=== PATIENT | female | born 1985 | race Caucasian/White ===

== ENCOUNTER → 2017-06-14 | Outpatient (CLI) | payer BC ==
--- NOTE | 2017-06-14 21:20 | US ---
EXAMINATION TYPE: US kidneys/renal and bladder DATE OF EXAM: 06/14/2017 COMPARISON: NONE CLINICAL HISTORY: R80.9 PROTEINURIA. Proteinuria, patient is 19 weeks EXAM MEASUREMENTS: Right Kidney: 12.6 x 5.2 x 4.8 cm Left Kidney: 13.6 x 4.5 x 4.7 cm Right Kidney: No hydronephrosis or nephrolithiasis. Left Kidney: No hydronephrosis or nephrolithiasis. Bladder: appears wnl Bilateral Jets seen: yes Splenomegaly: spleen measuring 14.0cm IMPRESSION: Thickening at the upper limits of normal in size but no evidence of hydronephrosis or nephrolithiasis . Incidental note made of splenomegaly.
== END | disposition home or self-care (01) ==
LOC: RADUSWWP 16:12
PROVIDERS: ATTEND Internal Medicine Nephrology
DX: R80.9 Proteinuria, unspecified (principal); R56.9 Unspecified convulsions
CPT/HCPCS: 76770

== ENCOUNTER → 2017-12-10 | Outpatient (CLI) | payer BC ==
[2017-12-10 10:52] LABS: Basophils % (A) 1 %; Eosinophils # (A) 0.2 k/uL (0-0.7); Eosinophils % (A) 2 %; HCT 43.2 % (34.0-46.0); HGB 13.8 gm/dL (11.4-16.0); Lymphocytes # (A) 1.5 k/uL (1.0-4.8); Lymphocytes % (A) 23 %; MCH 28.9 pg (25.0-35.0); MCHC 31.8 g/dL (31.0-37.0); MCV 90.9 fL (80.0-100.0); Mean Platelet Volume 6.7; Monocytes # (A) 0.4 k/uL (0-1.0); Monocytes % (A) 6 %; Neutrophils # (A) 4.4 k/uL (1.3-7.7); Neutrophils % (A) 67 %; Platelet Count 282 k/uL (150-450); RBC 4.75 m/uL (3.80-5.40); RDW 12.9 % (11.5-15.5); WBC 6.6 k/uL (3.8-10.6)
[2017-12-10 11:12] LABS: ALT 53 U/L (9-52); AST 48 U/L (14-36); Albumin 4.2 g/dL (3.5-5.0); Alkaline Phosphatase 82 U/L (38-126); Anion Gap 11 mmol/L; Bilirubin, Delta 0.3 mg/dL (0.0-0.2); Bilirubin,Unconjugated 0.1 mg/dL (0.0-1.1); Blood Urea Nitrogen 19 mg/dL (7-17); Calcium 9.6 mg/dL (8.4-10.2); Carbon Dioxide 30 mmol/L (22-30); Chloride 101 mmol/L (98-107); Glucose 90 mg/dL (74-99); Phosphorus 3.3 mg/dL (2.5-4.5); Potassium 4.6 mmol/L (3.5-5.1); Sodium 142 mmol/L (137-145); Total Bilirubin 0.4 mg/dL (0.2-1.3); Total Protein 7.3 g/dL (6.3-8.2)
== END | disposition home or self-care (01) ==
LOC: LABWHC1 10:11
PROVIDERS: ATTEND Internal Medicine Nephrology
DX: O14.90 Unspecified pre-eclampsia, unspecified trimester (principal); O26.891 Other specified pregnancy related conditions, first trimester; Z3A.00 Weeks of gestation of pregnancy not specified; R80.9 Proteinuria, unspecified; R56.9 Unspecified convulsions
CPT/HCPCS: 36415; 80069; 80076; 85025

== ENCOUNTER → 2018-03-26 | Outpatient (CLI) | payer BC ==
[2018-03-26 09:14] LABS: Basophils % (A) 1 %; Eosinophils # (A) 0.1 k/uL (0-0.7); Eosinophils % (A) 2 %; HCT 42.6 % (34.0-46.0); HGB 14.3 gm/dL (11.4-16.0); Lymphocytes # (A) 1.5 k/uL (1.0-4.8); Lymphocytes % (A) 23 %; MCH 29.2 pg (25.0-35.0); MCHC 33.7 g/dL (31.0-37.0); MCV 86.5 fL (80.0-100.0); Mean Platelet Volume 6.6; Monocytes # (A) 0.4 k/uL (0-1.0); Monocytes % (A) 6 %; Neutrophils # (A) 4.4 k/uL (1.3-7.7); Neutrophils % (A) 68 %; Platelet Count 312 k/uL (150-450); RBC 4.92 m/uL (3.80-5.40); RDW 13.1 % (11.5-15.5); WBC 6.5 k/uL (3.8-10.6)
[2018-03-26 09:26] LABS: Albumin 4.1 g/dL (3.5-5.0); Anion Gap 12 mmol/L; Blood Urea Nitrogen 15 mg/dL (7-17); Calcium 9.5 mg/dL (8.4-10.2); Carbon Dioxide 28 mmol/L (22-30); Chloride 101 mmol/L (98-107); Cholesterol 141 mg/dL (<200); Glucose 91 mg/dL (74-99); HDL Cholesterol 43 mg/dL (40-60); LDL Cholesterol,Calculated 75 mg/dL (0-99); Phosphorus 3.1 mg/dL (2.5-4.5); Potassium 4.6 mmol/L (3.5-5.1); Sodium 141 mmol/L (137-145); Triglycerides 114 mg/dL (<150)
[2018-03-26 16:01] LABS: Protein, Total 6.8 g/dL (6.2-8.2)
[2018-03-26 16:45] LABS: Hepatitis B Surface AB- Quant 14.5 mIU/mL; Hepatitis C IgG Antibody Non-Reactive (Non-Reactive)
[2018-03-27 12:45] LABS: Albumin 3.58 g/dL (3.80-4.90); Gamma Globulin 1.09 g/dL (0.70-1.50)
== END | disposition home or self-care (01) ==
LOC: LABWHC1 08:18
PROVIDERS: ATTEND Internal Medicine Nephrology
DX: O13.1 Gestational [pregnancy-induced] hypertension without significant proteinuria, first trimester (principal); O99.350 Diseases of the nervous system complicating pregnancy, unspecified trimester; O26.893 Other specified pregnancy related conditions, third trimester; R80.9 Proteinuria, unspecified; R56.9 Unspecified convulsions; Z3A.00 Weeks of gestation of pregnancy not specified
CPT/HCPCS: 36415; 80061; 80069; 83883; 84165; 85025; 86038; 86160; 86706; 86780; 86803; 87340

== ENCOUNTER → 2018-06-25 | Outpatient (CLI) | payer BC ==
--- NOTE | 2018-06-25 11:16 | XR ---
EXAMINATION TYPE: XR chest 2V DATE OF EXAM: 06/25/2018 COMPARISON: None INDICATION: Cough TECHNIQUE: Frontal and lateral views of the chest are obtained. FINDINGS: The heart size is normal. The pulmonary vasculature is normal. The lungs are clear. IMPRESSION: 1. No acute pulmonary process.
== END | disposition home or self-care (01) ==
LOC: RADXRMAIN 10:44
PROVIDERS: ATTEND Internal Medicine
DX: R05 Cough (principal)
CPT/HCPCS: 71046

== ENCOUNTER → 2018-09-17 | Outpatient (CLI) | payer BC ==
[2018-09-17 08:46] LABS: Basophils % (A) 1 %; Eosinophils # (A) 0.1 k/uL (0-0.7); Eosinophils % (A) 2 %; HCT 42.2 % (34.0-46.0); HGB 14.2 gm/dL (11.4-16.0); Lymphocytes # (A) 1.5 k/uL (1.0-4.8); Lymphocytes % (A) 21 %; MCH 30.3 pg (25.0-35.0); MCHC 33.7 g/dL (31.0-37.0); Mean Platelet Volume 6.4; Monocytes # (A) 0.4 k/uL (0-1.0); Monocytes % (A) 5 %; Neutrophils % (A) 69 %; Platelet Count 233 k/uL (150-450); RBC 4.69 m/uL (3.80-5.40); RDW 13.4 % (11.5-15.5); WBC 7.2 k/uL (3.8-10.6)
[2018-09-17 09:09] LABS: Appearance,Urine Cloudy (Clear); Bilirubin,Urine Negative (Negative); Blood,Urine Trace (Negative); Color,Urine Yellow; Glucose,Urine (UA) Negative (Negative); Hyaline Casts,Urine 3 /lpf (0-2); Ketones,Urine Negative (Negative); Leukocyte Esterase,Urine Negative (Negative); Mucus,Urine Few /hpf; Nitrite,Urine Negative (Negative); PH, Urine 5.5 (5.0-8.0); Protein,Urine 2+ (Negative); RBC,Urine 1 /hpf (0-5); Specific Gravity,Urine 1.022 (1.001-1.035); Squamous Epithelial Cell,Urine 13 /hpf (0-4); Urobilinogen,Urine <2.0 mg/dL (<2.0); WBC,Urine 1 /hpf (0-5)
[2018-09-17 17:14] LABS: Albumin 4.1 g/dL (3.80-4.90); Anion Gap 2.7 mmol/L (4.00-12.00); Calcium 8.8 mg/dL (8.7-10.3); Carbon Dioxide 29.3 mmol/L (21.6-31.8); Phosphorus 2.2 mg/dL (2.4-5.1); Potassium 4.2 mmol/L (3.5-5.5)
[2018-09-17 18:14] LABS: Creatinine,Urine Random 198.6 mg/dL
[2018-09-17 18:50] LABS: Total Protein,Urine Random 140.2 mg/dL (0.0-13.5)
[2018-09-18 10:56] LABS: IgG Subclass 3 42.9 mg/dL (11.0-85.0); IgG Subclass 4 0.7 mg/dL (3.0-175.0)
== END ==
LOC: LABWHC1 08:07
PROVIDERS: ATTEND Psychiatry & Neurology Neurology
DX: O13.1 Gestational [pregnancy-induced] hypertension without significant proteinuria, first trimester (principal); J20.9 Acute bronchitis, unspecified; O12.11 Gestational proteinuria, first trimester; O15.9 Eclampsia, unspecified as to time period; O99.511 Diseases of the respiratory system complicating pregnancy, first trimester; Z3A.00 Weeks of gestation of pregnancy not specified
CPT/HCPCS: 36415; 80069; 81001; 82570; 82787; 84156; 84450; 84460; 85025

== ENCOUNTER → 2020-08-23 | Outpatient (CLI) | payer BC ==
[2020-08-23 10:12] LABS: Basophils % (A) 1 %; Eosinophils # (A) 0.1 k/uL (0-0.7); Eosinophils % (A) 1 %; HCT 42.4 % (34.0-46.0); HGB 13.8 gm/dL (11.4-16.0); Lymphocytes % (A) 18 %; MCH 29.9 pg (25.0-35.0); MCHC 32.6 g/dL (31.0-37.0); MCV 91.7 fL (80.0-100.0); Mean Platelet Volume 6.7; Monocytes # (A) 0.4 k/uL (0-1.0); Monocytes % (A) 6 %; Neutrophils # (A) 4.3 k/uL (1.3-7.7); Neutrophils % (A) 73 %; Platelet Count 248 k/uL (150-450); RBC 4.62 m/uL (3.80-5.40); RDW 12.4 % (11.5-15.5); WBC 5.9 k/uL (3.8-10.6)
[2020-08-23 11:32] LABS: Appearance,Urine Cloudy (Clear); Bilirubin,Urine Negative (Negative); Blood,Urine Negative (Negative); Color,Urine Yellow; Glucose,Urine (UA) Negative (Negative); Ketones,Urine Negative (Negative); Leukocyte Esterase,Urine Negative (Negative); Mucus,Urine Occasional /hpf; Nitrite,Urine Negative (Negative); PH, Urine 6.5 (5.0-8.0); Protein,Urine 1+ (Negative); RBC,Urine 5 /hpf (0-5); Specific Gravity,Urine 1.025 (1.001-1.035); Squamous Epithelial Cell,Urine 8 /hpf (0-4); Urobilinogen,Urine <2.0 mg/dL (<2.0); WBC,Urine 1 /hpf (0-5)
[2020-08-23 11:41] LABS: Protein/Creatinine Ratio,Urine 0.161
[2020-08-23 16:23] LABS: African American GFR (CKD) 129.2 (60.0-200.0); Albumin 4.2 g/dL (3.80-4.90); Anion Gap 8.9 mmol/L (4.00-12.00); BUN/Creat Ratio 15.71 Ratio (12.00-20.00); Calcium 9.1 mg/dL (8.7-10.3); Carbon Dioxide 26.1 mmol/L (21.6-31.8); Non-African American GFR(CKD) 111.5 (60.0-200.0); Phosphorus 2.2 mg/dL (2.4-5.1)
== END | disposition home or self-care (01) ==
LOC: LABWHC1 08:14
PROVIDERS: ATTEND Internal Medicine Nephrology
DX: I12.9 Hypertensive chronic kidney disease with stage 1 through stage 4 chronic kidney disease, or unspecified chronic kidney disease (principal); N18.2 Chronic kidney disease, stage 2 (mild); R56.9 Unspecified convulsions; R80.9 Proteinuria, unspecified
CPT/HCPCS: 36415; 80069; 81001; 82306; 82570; 83970; 84156; 85025

== ENCOUNTER → 2021-01-24 | Outpatient (CLI) | payer BC ==
[2021-01-24 08:25] LABS: Appearance,Urine Cloudy (Clear); Bacteria,Urine Rare /hpf; Bilirubin,Urine Negative (Negative); Blood,Urine Negative (Negative); Color,Urine Yellow; Glucose,Urine (UA) Negative (Negative); Ketones,Urine Negative (Negative); Leukocyte Esterase,Urine Negative (Negative); Nitrite,Urine Negative (Negative); PH, Urine 6.5 (5.0-8.0); Protein,Urine Trace (Negative); RBC,Urine <1 /hpf (0-5); Specific Gravity,Urine 1.012 (1.001-1.035); Squamous Epithelial Cell,Urine 7 /hpf (0-4); Urobilinogen,Urine <2.0 mg/dL (<2.0); WBC,Urine <1 /hpf (0-5)
[2021-01-24 10:19] LABS: Creatinine,Urine Random 66.5 mg/dL; Protein/Creatinine Ratio,Urine 0.301
[2021-01-24 15:25] LABS: Basophils # (A) 0.05 X 10*3/uL (0.00-0.10); Basophils % (A) 0.5 %; Eosinophils # (A) 0.13 X 10*3/uL (0.04-0.35); Eosinophils % (A) 1.3 %; Lymphocytes % (A) 17.3 %; MCH 30.1 pg (27.0-32.0); MCHC 32.4 g/dL (32.0-37.0); MCV 92.7 fL (80.0-97.0); Mean Platelet Volume 9.5 fL (9.5-12.2); Monocytes # (A) 0.66 X 10*3/uL (0.20-1.00); Monocytes % (A) 6.7 %; Neutrophils # (A) 7.22 X 10*3/uL (1.80-7.70); Neutrophils % (A) 73.5 %; Platelet Count 262 X 10*3/uL (140-440); RBC 3.99 X 10*6/uL (4.10-5.20); RDW 12.8 % (11.5-14.5); WBC 9.83 X 10*3/uL (4.50-10.00)
[2021-01-24 18:39] LABS: Albumin 3.8 g/dL (3.80-4.90); Calcium 8.7 mg/dL (8.7-10.3); Non-African American GFR(CKD) 116.4 (60.0-200.0); Phosphorus 3.1 mg/dL (2.4-5.1); Potassium 4.4 mmol/L (3.5-5.5)
== END | disposition home or self-care (01) ==
LOC: LABWHC1 07:08
PROVIDERS: ATTEND Psychiatry & Neurology Neurology
DX: Z51.81 Encounter for therapeutic drug level monitoring (principal); Z79.899 Other long term (current) drug therapy
CPT/HCPCS: 36415; 80069; 80175; 81001; 82570; 84156; 84450; 84460; 85025

== ENCOUNTER 2021-03-23 10:11 | Inpatient (IN) | payer BC ==
[2021-03-17 15:39] VITALS: BMI 42.1
[2021-03-23] MEDS ORDERED: LACTATED RINGERS 1,000 ML IV ONE (10:27)
[2021-03-23] MEDS ORDERED: CITRIC ACID-SODIUM CITRATE 15 ML CUP PO ONE (10:27)
[2021-03-23 10:40] LABS: Basophils % (A) 0 %; Eosinophils % (A) 1 %; HCT 36.2 % (34.0-46.0); HGB 12.5 gm/dL (11.4-16.0); Lymphocytes % (A) 12 %; MCH 30.3 pg (25.0-35.0); MCHC 34.6 g/dL (31.0-37.0); MCV 87.6 fL (80.0-100.0); Mean Platelet Volume 7.3; Monocytes % (A) 5 %; Neutrophils % (A) 81 %; Platelet Count 291 k/uL (150-450); RBC 4.13 m/uL (3.80-5.40); RDW 14.1 % (11.5-15.5); WBC 9.1 k/uL (3.8-10.6)
[2021-03-23 10:41] LABS: Eosinophils # (A) 0.1 k/uL (0-0.7); Lymphocytes # (A) 1.1 k/uL (1.0-4.8); Monocytes # (A) 0.4 k/uL (0-1.0); Neutrophils # (A) 7.4 k/uL (1.3-7.7)
[2021-03-23] MEDS ORDERED: GENTAMICIN 420 MG in SODIUM CHLORIDE 0.9% 100 ML IVPB ONE (10:45)
[2021-03-23] MEDS ORDERED: CLINDAMYCIN 900 MG in DEXTROSE 5% IN WATER 50 ML IVPB ONE ×2 (10:45)
[2021-03-23] MEDS ORDERED: OXYTOCIN 10 UNIT/ML 1 ML VIAL ONE (12:01)
[2021-03-23] MEDS ORDERED: ONDANSETRON 4 MG/2 ML VIAL ONE (12:01)
[2021-03-23] MEDS ORDERED: MORPHINE SULFATE (PF) 0.3 MG/0.3 ML SYR ONE (12:01)
[2021-03-23] MEDS ORDERED: KETOROLAC 15 MG/ML 1 ML VIAL ONE (12:01)
[2021-03-23] MEDS ORDERED: DEXAMETHASONE SOD PHOSPHATE 4 MG/ML 1 ML VIAL ONE (12:01)
[2021-03-23] MEDS ORDERED: ONDANSETRON 4 MG/2 ML VIAL IVP PRN ×2 (12:27→13:02)
[2021-03-23] MEDS ORDERED: NALOXONE 0.4 MG/ML 1 ML VIAL IV PRN (12:27)
[2021-03-23] MEDS ORDERED: diphenhydrAMINE 50 MG/ML 1 ML VIAL IVP PRN ×3 (12:27→13:02)
[2021-03-23] MEDS ORDERED: MORPHINE SULFATE 2 MG/ML SYRINGE IVP PRN (12:27)
--- NOTE | 2021-03-23 12:57 | P.HPOB ---
History of Present Illness H&P Date: 03/23/21 Chief Complaint: Here for repeat section, tubal ligation This is a 35-year-old female 4 para 2012 EDC 04/09/2021 at 37-4/7 weeks' gestation. Patient presents today on recommendation of maternal medicine specialists at [facility], for repeat low transverse section and tubal ligation. She has a history of chronic hypertension, epilepsy, end-stage 3 kidney disease. She is followed closely by a neurologist as well as the MFM team. Fetus is been active throughout the . Past medical history is significant for focal segmental glomerulosclerosis, stage III chronic kidney disease, epilepsy, chronic hypertension. Past surgical history section for breech presentation, basal cell carcinoma of the skin excision, ankle repair, voluntary termination of . Current medications baby aspirin daily, lamictal 400 mg twice daily, Procardia 60 mg twice daily, labetolol 200 mg twice a day, vitamin daily. ALLERGIES include amoxicillin to which reports nausea and lightheadedness, seasonal ALLERGIES. Family history significant for hypertension, metastatic lung cancer, Parkinson's disease, Alzheimer's disease. Reproductive history vaginal delivery, followed by section for breech. Social history patient is , she has never been a smoker, she denies alcohol and drug use. history is significant for blood type O+, rubella status immune. Urine culture, hepatitis B surface antigen, HIV testing, gonorrhea and chlamydia cultures, group B strep cultures all negative. On exam patient is 5 foot 6 inches, 260 pounds, blood pressure 127/86 on admission, pulse 96. The general physical exam is within normal limits. Cervix is long and closed. heart rate consistent with reactive NST. Paternal extremities reveal no edema, her chest is clear in all amaya. Impression: 37-4/7 weeks intrauterine , history of chronic hypertension, epilepsy, stage III renal disease. Here for repeat section and tubal ligation on recommendation of maternal medicine, daniel. Plan: For repeat low transverse section and tubal ligation. All risks benefits and alternatives have been discussed in detail. All questions answered. Review of Systems Constitutional: Reports as per HPI Past Medical History Past Medical History: Cancer, Hypertension, Renal Disease, Seizure Disorder Additional Past Medical History / Comment(s): epilepsy since age 10 per patient- last seizure approx 10/2020, states seizures are "simple partial" occurs when sleeping or tired and lasts approx. 10 seconds-does not loose consciousness, hx Basal cell cancer, states renal disorder FSGS-following with [facility] (Dr Charlie Jama). History of Any Multi-Drug Resistant Organisms: None Reported Past Surgical History: Section, Orthopedic Surgery Additional Past Surgical History / Comment(s): LEFT ANKLE SURGERY, LASIK EYE SURGERY. Past Anesthesia/Blood Transfusion Reactions: No Reported Reaction Past Psychological History: No Psychological Hx Reported Smoking Status: Never smoker Past Alcohol Use History: Occasional Additional Past Alcohol Use History / Comment(s): no alcohol while Past Drug Use History: None Reported - Past Family History Father Family Medical History: Cancer, Hypertension Additional Family Medical History / Comment(s): BASAL CELL CANCER Medications and Allergies Home Medications Medication Instructions Recorded Confirmed Type Folic Acid 1 mg PO DAILY 05/02/14 03/23/21 History Uhq-Mgzc-Kabun Acid 1 tab PO DAILY 05/02/14 03/23/21 History [-U Capsule] lamoTRIgine [LaMICtal] 400 mg PO BID 05/02/14 03/23/21 History Aspirin [Adult Low Dose Aspirin EC] 81 mg PO DAILY 10/10/17 03/23/21 History NIFEdipine [Procardia XL] 60 mg PO BID 10/10/17 03/23/21 History Labetalol HCl 200 mg PO BID 03/17/21 03/23/21 History Allergies Allergy/AdvReac Type Severity Reaction Status Date / Time amoxicillin [Amoxicillin] AdvReac Nausea & Verified 03/23/21 10:26 Vomiting Exam Vital Signs Temp Pulse Resp BP 03/23/21 10:32 96.4 F L 96 16 127/86 Intake and Output 03/22/21 03/23/21 03/23/21 22:59 06:59 14:59 Other: Weight 118.388 kg Results Result Diagrams: 03/23/21 10:30 Assessment and Plan Assessment: 37-4/7 weeks intrauterine , advanced maternal age, undesired fertility, stage III renal disease, chronic hypertension, history of epilepsy. Plan: Repeat low transverse section and tubal ligation with Filshie clips. All questions reviewed and addressed. Time with Patient: Less than 30
[2021-03-23] MEDS ORDERED: SIMETHICONE 80 MG CHEWABLE PO PRN (13:02)
[2021-03-23] MEDS ORDERED: diphenhydrAMINE 25 MG CAP PO PRN (13:02)
[2021-03-23] MEDS ORDERED: ZOLPIDEM 5 MG TAB PO PRN (13:02)
[2021-03-23] MEDS ORDERED: METOCLOPRAMIDE 5 MG/ML 2 ML VIAL IVP PRN (13:02)
[2021-03-23] MEDS ORDERED: diphenhydrAMINE 50 MG CAP PO PRN (13:02)
--- NOTE | 2021-03-23 13:02 | P.OP ---
Date of Procedure: 03/23/21 Preoperative Diagnosis: 37-4/7 weeks intrauterine , advanced maternal age, stage III renal disease, chronic hypertension, history of epilepsy. Undesired fertility. Postoperative Diagnosis: Same, liveborn male Procedure(s) Performed: Repeat low transverse section, tubal ligation with Filshie clips. Anesthesia: spinal Surgeon: Dayanara [employer]ana [employer] Speech Language Pathologist #1: Cassi Williamson Estimated Blood Loss (ml): 320 IV fluids (ml): 600 Urine output (ml): 200 Pathology: other (Placenta) Condition: stable Disposition: PACU Description of Procedure: Patient is brought to the operating suite where a spinal anesthetic is administered without difficulty. She's placed in the dorsal supine position with left lateral uterine displacement. Antibiotics are given. The appropriate timeout was performed to assure proper patient and procedural identification. Abdomen is prepped and draped in usual sterile fashion. Analgesia is checked and noted to be adequate. A repeat low transverse skin incision is made in this is carried down through the subcutaneous tissue of approximately 8 cm depth. Fascia is isolated, scored, extended bilaterally with curved Herbert scissors. Peritoneum is next identified and incised, there is no bowel or bladder involvement. The large ring retractors placed into the abdomen for good visualization. A repeat low transverse uterine incision is made. Artificial amniorrhexis reveals clear fluid. The incision is extended laterally bluntly. The infant's head is delivered in the occiput anterior position. The oropharynx, nasopharynx, and external nares were all bulb suction. Patient is officially delivered of a liveborn male infant at 12-3 hours. Umbilical cord is doubly clamped and ligated, he is handed to waiting nurses for evaluation where scores of 46 and 9 at one and 5 and 10 minutes respectively were given. Infant weighs 12/22/2004 grams or 7 lbs. 8 oz. The placentas delivered manually, it is inspected and noted to be fully intact with trivascular cord at 1224 hours. It is sent to pathology for evaluation. The uterus is then externalized and massaged. Oxytocin is given. Uterus is swept clean with a sterile sponge to avoid any retained products of conception. The uterus is closed in a single full-thickness stitch of 0 Vicryl suture for excellent reapproximation. Filshie clips are then applied to the isthmic portion of both tubes, with care to visualize the fimbriated ends, and to traverse the entire diameter of the tubes into the mesal salpinx. Ovaries appear normal. Abdomen is then suctioned with suction on guard posterior to the uterus. Uterus is gently placed back into the abdominal cavity. Bilateral gutters are inspected and cleaned. Incision is once again inspected and noted to be intact and dry. Peritoneum was allowed to close by secondary intention. Fascia is closed in a running stitch of 0 Vicryl with over ligation in the midline. Excellent reapproximation is noted. Subcutaneous tissue is reappro ximated with 3-0 Vicryl in a running fashion. 4-0 undyed Monocryl is used for final skin closure in a subcuticular manner. Steri-Strips and Mastisol are applied to the wound. Patient is brought back to recovery room in very good condition with stable vital signs. Moreira is noted to be draining clear urine. Patient and her are requesting circumcision further son.
[2021-03-23] MEDS: LACTATED RINGERS 1,000 ML IV SCH (15:54)
[2021-03-23] MEDS: ACETAMINOPHEN TAB 500 MG TAB PO SCH (19:05)
[2021-03-23] MEDS: SENNOSIDES-DOCUSATE SODIUM 1 EACH TAB PO SCH (20:53)
[2021-03-23] MEDS: IBUPROFEN 600 MG TAB PO SCH (20:55)
[2021-03-23] MEDS ORDERED: lamoTRIgine 100 MG TAB PO SCH (21:00)
[2021-03-23] MEDS: NIFEdipine 10 MG CAP PO SCH (21:19)
[2021-03-23] MEDS: lamoTRIgine 100 MG TAB PO SCH (21:20)
[2021-03-23] MEDS: KETOROLAC 15 MG/ML 1 ML VIAL IVP SCH (22:45)
[2021-03-24] MEDS: IBUPROFEN 600 MG TAB PO SCH ×3 (04:17→18:43)
[2021-03-24] MEDS: LACTATED RINGERS 1,000 ML IV SCH ×2 (04:17→09:10)
[2021-03-24] MEDS: ACETAMINOPHEN TAB 500 MG TAB PO SCH ×4 (04:17→22:01)
[2021-03-24 05:42] LABS: Basophils % (A) 0 %; Eosinophils # (A) 0.1 k/uL (0-0.7); Eosinophils % (A) 1 %; HCT 31.8 % (34.0-46.0); HGB 11.1 gm/dL (11.4-16.0); Lymphocytes # (A) 1.5 k/uL (1.0-4.8); Lymphocytes % (A) 15 %; MCH 30.9 pg (25.0-35.0); MCHC 34.9 g/dL (31.0-37.0); MCV 88.4 fL (80.0-100.0); Mean Platelet Volume 7.6; Monocytes # (A) 0.6 k/uL (0-1.0); Monocytes % (A) 6 %; Neutrophils # (A) 7.7 k/uL (1.3-7.7); Neutrophils % (A) 77 %; Platelet Count 250 k/uL (150-450); RDW 14.2 % (11.5-15.5); WBC 10.1 k/uL (3.8-10.6)
[2021-03-24] MEDS: SENNOSIDES-DOCUSATE SODIUM 1 EACH TAB PO SCH ×2 (08:25→19:35)
[2021-03-24] MEDS: KETOROLAC 15 MG/ML 1 ML VIAL IVP SCH (08:25)
[2021-03-24] MEDS: lamoTRIgine 100 MG TAB PO SCH ×2 (08:26→19:36)
[2021-03-24] MEDS: NIFEdipine 10 MG CAP PO SCH ×2 (08:35→19:35)
--- NOTE | 2021-03-24 08:42 | P.PN ---
Subjective Progress Note Date: 03/24/21 Principal diagnosis: Postoperative day #1 Positive flatus. Pain well controlled. No complaints. Objective - Vital Signs Vital signs: Vital Signs Temp 98.1 F 03/24/21 04:00 Pulse 70 03/24/21 04:00 Resp 16 03/24/21 05:00 BP 109/63 03/24/21 04:00 Pulse Ox 99 03/24/21 04:00 Intake & Output 03/23/21 03/24/21 03/24/21 18:59 06:59 18:59 Output Total 800 1600 Balance -800 -1600 Weight 118.388 kg Output: Urine 800 1600 Uretheral (Moreira) 500 Other: # Voids 1 - Constitutional General appearance: Present: average body habitus, cooperative - EENT Eyes: Present: PERRLA ENT: Present: hearing grossly normal - Respiratory Respiratory: bilateral: CTA - Cardiovascular Rhythm: regular - Gastrointestinal General gastrointestinal: Present: normal bowel sounds - Genitourinary Genitourinary Comment(s): Incision clean and dry, intact, Steri-Strips applied. Fundus firm, midline, symmetric, 18 week size, nontender. - Integumentary Integumentary: Present: normal - Neurologic Neurologic: Present: CNII-XII intact - Musculoskeletal Musculoskeletal: Present: gait normal, strength equal bilaterally - Psychiatric Psychiatric: Present: A&O x's 3, appropriate affect, intact judgment & insight - Labs CBC & Chem 7: 03/24/21 05:08 Labs: Abnormal Lab Results - Last 24 Hours (Table) 03/24/21 Range/Units 05:08 RBC 3.60 L (3.80-5.40) m/uL Hgb 11.1 L (11.4-16.0) gm/dL Hct 31.8 L (34.0-46.0) % Assessment and Plan Assessment: Doing well post operatove day #1 Plan: Continue post operative care. Time with Patient: Less than 30
[2021-03-25] MEDS: IBUPROFEN 600 MG TAB PO SCH ×5 (02:38→18:55)
[2021-03-25] MEDS: ACETAMINOPHEN TAB 500 MG TAB PO SCH ×4 (05:29→22:11)
--- NOTE | 2021-03-25 08:00 | P.PN ---
Subjective Progress Note Date: 03/25/21 Principal diagnosis: Doing well second postoperative day Voiding, passing flatus, positive bowel movement. No complaints. Feeling well. Objective - Vital Signs Vital signs: Vital Signs Temp 98.4 F 03/25/21 04:00 Pulse 78 03/25/21 04:00 Resp 15 03/25/21 04:00 BP 125/76 03/25/21 04:00 Pulse Ox 99 03/24/21 04:00 Intake & Output 03/24/21 03/25/21 03/25/21 18:59 06:59 18:59 Other: # Voids 2 2 - Constitutional General appearance: Present: average body habitus - EENT Eyes: Present: PERRLA ENT: Present: hearing grossly normal - Neck Neck: Present: normal ROM - Respiratory Respiratory: bilateral: CTA - Cardiovascular Rhythm: regular - Gastrointestinal General gastrointestinal: Present: normal bowel sounds - Integumentary Integumentary: Present: normal - Neurologic Neurologic: Present: CNII-XII intact - Musculoskeletal Musculoskeletal: Present: gait normal, strength equal bilaterally - Psychiatric Psychiatric: Present: A&O x's 3, appropriate affect, intact judgment & insight - Labs CBC & Chem 7: 03/24/21 05:08 Assessment and Plan Assessment: Doing well second postoperative day Plan: Continue postoperative care. Likely circumcision on tomorrow, suspect discharge home tomorrow. Time with Patient: Less than 30
[2021-03-25] MEDS: lamoTRIgine 100 MG TAB PO SCH ×2 (09:01→20:45)
[2021-03-25] MEDS: SENNOSIDES-DOCUSATE SODIUM 1 EACH TAB PO SCH ×2 (09:02→19:37)
[2021-03-25] MEDS: NIFEdipine 10 MG CAP PO SCH ×2 (10:03→20:45)
--- NOTE | 2021-03-25 12:33 | P.PN ---
Progress Note - Text Progress Note Date: 03/24/21 Postoperative day 1 status post section under spinal anesthesia, and intrathecal morphine given for postoperative analgesia, patient doing well, there is no anesthesia related complications Patient had no headache, vital signs stable Assessment and plan = postop day 1 status post , doing well there is no anesthesia related complication
[2021-03-26] MEDS: IBUPROFEN 600 MG TAB PO SCH ×3 (00:06→09:59)
[2021-03-26] MEDS: ACETAMINOPHEN TAB 500 MG TAB PO SCH ×2 (05:17→14:23)
[2021-03-26 08:13] VITALS: BP 137/87; PULSE 75; RESP 16; TEMP 98.2
[2021-03-26] MEDS: SENNOSIDES-DOCUSATE SODIUM 1 EACH TAB PO SCH (08:13)
--- NOTE | 2021-03-26 08:44 | P.DS ---
Providers Date of admission: 03/23/21 10:11 Expected date of discharge: 03/26/21 Attending physician: Dayanara Triana Primary care physician: Stated None Hospital Course: This is a 35-year-old white female 4 para 2012 EDC 04/09/2021 at 37-4/7 weeks' gestation. Patient presented for repeat low transverse section and tubal ligation, recommendation for early delivery made by maternal- medicine consultants. Patient's has been remarkable for chronic hypertension, history of epilepsy, history of stage III kidney disease. Please see dictated history and physical for details. Patient underwent a repeat low transverse section giving to a liveborn male infant with scores of 46 and 9 at one and 5 and 10 minutes. weighed 7 lbs. 8 oz. or 12/22/2004 grams. Estimated blood loss 320 mL's. Tubal ligation was performed per patient's request utilizing Filshie clips. Please see my dictated operative note for details. This morning the patient is doing quite well. Her blood pressure has been stable on Procardia 30 mg twice daily. She has continued her Lamictal 400 mg twice daily. She is voiding, and bleeding, passing flatus without difficulty. Vital signs have been stable and she is afebrile. Fundus is firm and in the midline, symmetric and 18 week size. Extremities are negative for edema. Chest is clear, breasts are not engorged. Circumcision has been performed on her baby. She is judged to be in good condition for discharge home. She will follow-up with me in the office in 2 weeks. She is reminded no intercourse, tampons or douching. She will use [id number] Advil or Aleve, or Motrin as needed for pain. She will call with any fevers shakes or chills, foul smelling or copious lochia, with the passage of large blood clots, or indeed with any problems difficulties or concerns. She will continue her Procardia 30 mg twice daily, and Lamictal 400 mg twice daily. Assessment: Doing well postoperative day #3 Patient Condition at Discharge: Good Plan - Discharge Summary Discharge Rx Participant: No New Discharge Prescriptions: No Action lamoTRIgine [LaMICtal] 400 mg PO BID Folic Acid 1 mg PO DAILY Epn-Ptlr-Mpgko Acid [-U Capsule] 1 tab PO DAILY NIFEdipine [Procardia XL] 60 mg PO BID Aspirin [Adult Low Dose Aspirin EC] 81 mg PO DAILY Labetalol HCl 200 mg PO BID Discharge Medication List Folic Acid 1 mg PO DAILY 05/02/14 [History] Vwd-Rdef-Thiyl Acid [-U Capsule] 1 tab PO DAILY 05/02/14 [History] lamoTRIgine [LaMICtal] 400 mg PO BID 05/02/14 [History] Aspirin [Adult Low Dose Aspirin EC] 81 mg PO DAILY 10/10/17 [History] NIFEdipine [Procardia XL] 60 mg PO BID 10/10/17 [History] Labetalol HCl 200 mg PO BID 03/17/21 [History] Follow up Appointment(s)/Referral(s): Daaynara Triana MD [STAFF PHYSICIAN] - 2 Weeks Discharge Disposition: HOME SELF-CARE
[2021-03-26] MEDS: NIFEdipine 10 MG CAP PO SCH (09:59)
[2021-03-26] MEDS: lamoTRIgine 100 MG TAB PO SCH (09:59)
== END 2021-03-26 15:42 | disposition home or self-care (01) | DRG 784 ==
LOC: 4FBP 10:11
PROVIDERS: ADMIT Obstetrics & Gynecology; ATTEND Obstetrics & Gynecology
PROC: 0UB70ZZ Excision of Bilateral Fallopian Tubes, Open Approach (ICD-10-PCS; 2021-03-23)
PROC: 10D00Z1 Extraction of Products of Conception, Low, Open Approach (ICD-10-PCS; principal; 2021-03-23 12:00)
DX: O34.211 Maternal care for low transverse scar from previous cesarean delivery (principal); O26.833 Pregnancy related renal disease, third trimester; O99.354 Diseases of the nervous system complicating childbirth; G40.909 Epilepsy, unspecified, not intractable, without status epilepticus; I12.9 Hypertensive chronic kidney disease with stage 1 through stage 4 chronic kidney disease, or unspecified chronic kidney disease; J30.2 Other seasonal allergic rhinitis; N18.30 Chronic kidney disease, stage 3 unspecified; O10.22 Pre-existing hypertensive chronic kidney disease complicating childbirth; O99.52 Diseases of the respiratory system complicating childbirth; Z30.2 Encounter for sterilization; Z37.0 Single live birth; Z3A.37 37 weeks gestation of pregnancy; Z79.82 Long term (current) use of aspirin; Z79.899 Other long term (current) drug therapy; Z80.8 Family history of malignant neoplasm of other organs or systems; Z82.0 Family history of epilepsy and other diseases of the nervous system; Z82.49 Family history of ischemic heart disease and other diseases of the circulatory system; Z85.828 Personal history of other malignant neoplasm of skin
CPT/HCPCS: 85025; 86850; 86900; 86901; 88307

== ENCOUNTER → 2021-08-29 | Outpatient (CLI) | payer BC ==
[2021-08-29 11:04] LABS: Basophils # (A) 0.04 X 10*3/uL (0.00-0.10); Basophils % (A) 0.5 %; Eosinophils # (A) 0.13 X 10*3/uL (0.04-0.35); Eosinophils % (A) 1.7 %; HCT 40.4 % (37.2-46.3); HGB 13.2 g/dL (12.0-15.0); Lymphocytes # (A) 1.73 X 10*3/uL (0.90-5.00); Lymphocytes % (A) 22.9 %; MCH 28.4 pg (27.0-32.0); MCHC 32.7 g/dL (32.0-37.0); MCV 87.1 fL (80.0-97.0); Mean Platelet Volume 9.1 fL (9.5-12.2); Monocytes # (A) 0.54 X 10*3/uL (0.20-1.00); Monocytes % (A) 7.2 %; Neutrophils # (A) 5.08 X 10*3/uL (1.80-7.70); Neutrophils % (A) 67.3 %; Platelet Count 349 X 10*3/uL (140-440); RBC 4.64 X 10*6/uL (4.10-5.20); RDW 12.4 % (11.5-14.5); WBC 7.55 X 10*3/uL (4.50-10.00)
[2021-08-29 12:05] LABS: Erythrocyte Sedimentation Rate 30 mm/Hr (0-20)
[2021-08-29 13:17] LABS: African American GFR (CKD) 94.7 (60.0-200.0); Anion Gap 10.6 mmol/L (4.00-12.00); Blood Urea Nitrogen 14.2 mg/dL (9.0-27.0); Carbon Dioxide 25.4 mmol/L (21.6-31.8); Non-African American GFR(CKD) 81.7 (60.0-200.0)
== END | disposition home or self-care (01) ==
LOC: LABWHC1 07:56
PROVIDERS: ATTEND Psychiatry & Neurology Neurology
DX: Z51.81 Encounter for therapeutic drug level monitoring (principal); Z82.0 Family history of epilepsy and other diseases of the nervous system
CPT/HCPCS: 36415; 80051; 80175; 82565; 82947; 84450; 84460; 84520; 85025; 85652

== ENCOUNTER 2024-02-28 18:53 | Emergency (ER) | payer BC ==
--- NOTE | 2024-02-28 19:03 | ED ---
Lower Extremity Injury HPI - General Source: patient, RN notes reviewed Mode of arrival: ambulatory Limitations: no limitations <Dalia Rollins - Last Filed: 02/28/24 19:02> <Etienne Samuels - Last Filed: 02/29/24 01:15> - General Stated Complaint: Injury to R leg Time Seen by Provider: 02/28/24 19:02 - History of Present Illness Initial Comments: Quick note: 38-year-old female presented to the ER with a chief complaint of right leg injury. Patient states she was mowing the lawn on a riding lawn more when her brakes stopped working. She states she went over a [place]. Denies any head injury, loss of consciousness. Denies any paresthesias down the right leg. Reports most of her pain is in right posterior thigh. (Dalia Rollins) 38-year-old female presenting to the ED with a chief complaint of right leg pain. Patient states that she was mowing the lawn on a riding mower when her brakes were not working properly and she states that she had a sea wakk which was approximately 3 foot high and went over it. There was not a large drop over the CIWA. States that she and the riding mower went over it together and she did not fall off the mower. Denies head injury at this time. States that since then, has had pain of her right hip, buttock, right upper leg. Denies any other injury at this time. No other complaints. (Etienne Samuels) - Related Data Home Medications Medication Instructions Recorded Confirmed Folic Acid 1 mg PO DAILY 05/02/14 03/23/21 Hyf-Wlhc-Nwbau Acid 1 tab PO DAILY 05/02/14 03/23/21 [-U Capsule] lamoTRIgine [LaMICtal] 400 mg PO BID 05/02/14 03/23/21 Aspirin [Adult Low Dose Aspirin EC] 81 mg PO DAILY 10/10/17 03/23/21 NIFEdipine [Procardia XL] 60 mg PO BID 10/10/17 03/23/21 Labetalol HCl 200 mg PO BID 03/17/21 03/23/21 Allergies Allergy/AdvReac Type Severity Reaction Status Date / Time amoxicillin [Amoxicillin] AdvReac Nausea & Verified 02/28/24 19:29 Vomiting Review of Systems ROS Other: All systems not noted in ROS Statement are negative. <Dalia Rollins - Last Filed: 02/28/24 19:02> ROS Other: All systems not noted in ROS Statement are negative. <Etienne Samuels - Last Filed: 02/29/24 01:15> ROS Statement: Those systems with pertinent positive or pertinent negative responses have been documented in the HPI. Past Medical History Past Medical History: Cancer, Hypertension, Pneumonia, Seizure Disorder Additional Past Medical History / Comment(s): epilepsy since age 10 per patient- last seizure 2 days ago., states seizures are "simple partial" occurs when sleeping or tired and lasts approx. 10 seconds-does not loose consciousness., Basal cell cancer., hypertension while ., pneumonia (2016)., states protein in urine-following with sports specialist (Dr Charlie Jama). History of Any Multi-Drug Resistant Organisms: None Reported Past Surgical History: Orthopedic Surgery Additional Past Surgical History / Comment(s): LEFT ANKLE SURGERY. , LASIK EYE SURGERY. Past Anesthesia/Blood Transfusion Reactions: No Reported Reaction, Motion Sickness Past Psychological History: No Psychological Hx Reported Smoking Status: Never smoker Past Alcohol Use History: Occasional Additional Past Alcohol Use History / Comment(s): no alcohol while Past Drug Use History: None Reported - Past Family History Father Family Medical History: Cancer, Hypertension Additional Family Medical History / Comment(s): BASAL CELL CANCER <Dalia Rollins - Last Filed: 02/28/24 19:02> General Exam <aDlia Rollins - Last Filed: 02/28/24 19:02> General appearance: alert, in no apparent distress Head exam: Present: atraumatic, normocephalic Eye exam: Present: normal appearance Neck exam: Present: normal inspection Respiratory exam: Present: normal lung sounds bilaterally Cardiovascular Exam: Present: regular rate GI/Abdominal exam: Present: soft, normal bowel sounds. Absent: distended, tenderness, guarding, rebound, rigid Extremities exam: Present: other (Ambulates without difficulty.Full active range of motion of bilateral upper lower extremities. Radial pulses intact. DP/PT pulses intact. Palpation of bilateral upper lower extremities shows no significant tenderness to palpation, crepitus, step-off, obvious deformity. Ambulates without difficult) Back exam: Present: other (No midline spinal tenderness to palpation.) Neurological exam: Present: alert, oriented X3 Skin exam: Present: warm, dry <Etienne Samuels - Last Filed: 02/29/24 01:15> - General Exam Comments Initial Comments: Visual Physical Exam General: Well-appearing, nontoxic, no acute distress. Head: Normocephalic, atraumatic Eyes: PERRLA, EOMI ENT: Airway patent Chest: Nonlabored breathing Skin: No visual rash, normal skin tone Neuro: Alert and oriented 3 Musculoskeletal: No gross abnormalities (Dalia Rollins) Course Vital Signs 02/28/24 19:29 Temperature 98.2 F Pulse Rate 102 H Respiratory 18 Rate Blood Pressure 149/92 O2 Sat by Pulse 98 Oximetry Medical Decision Making <Dalia Rollins - Last Filed: 02/28/24 19:02> <Etienne Samuels - Last Filed: 02/29/24 01:15> - Medical Decision Making I performed the quick note portion of this chart. Electronically signed by Dalia Rollins PA-C (Dalia Rollins) Was pt. sent in by a medical professional or institution ([facility], [employer], urgent care, hospital, or fdc...) When possible be specific @ -No Did you speak to anyone other than the patient for history (EMS, parent, family, police, friend...)? What history was obtained from this source @ -No Did you review nursing and triage notes (agree or disagree)? Why? @ -I reviewed and agree with nursing and triage notes Were old charts reviewed (outside hosp., previous admission, EMS record, old EKG, old radiological studies, urgent care reports/EKG's, fdc records)? Report findings @ -No old charts were reviewed Differential Diagnosis (chest pain, altered mental status, abdominal pain women, abdominal pain men, vaginal bleeding, weakness, fever, dyspnea, syncope, headache, dizziness, GI bleed, back pain, seizure, CVA, palpatations, mental health, musculoskeletal)? @ -Differential Musculoskeletal Muscular strain, contusion, ligament sprain, fracture, arthritis, septic arthritis, bursitis, cellulitis, muscle spasm, nerve compression, DVT, arterial occlusion, herpes zoster, electrolyte abnormality, tumor.... This is not meant to be in all inclusive list EKG interpreted by me (3pts min.). @ -As above X-rays interpreted by me (1pt min.). @ -X-ray of the pelvis was performed and interpreted by me. No acute process. However this is pending official radiology read. CT interpreted by me (1pt min.). @ -None done U/S interpreted by me (1pt. min.). @ -None done What testing was considered but not performed or refused? (CT, X-rays, U/S, labs)? Why? @ -None What meds were considered but not given or refused? Why? @ -None Did you discuss the management of the patient with other professionals (professionals i.e. , PA, TIER TRUCK DRIVER, lab, RT, psych nurse, social worker masters, cold reduction roller, teacher, chief talent officer, case managers)? Give summary @ -No Was smoking cessation discussed for >3mins.? @ -No Was critical care preformed (if so, how long)? @ -No Were there social determinants of health that impacted care today? How? (Homelessness, low income, unemployed, alcoholism, drug addiction, transportation, low edu. Level, literacy, decrease access to med. care, detention, rehab)? @ -No Was there de-escalation of care discussed even if they declined (Discuss DNR or withdrawal of care, Hospice)? DNR status @ -No What co-morbidities impacted this encounter? (DM, HTN, Smoking, COPD, CAD, Cancer, CVA, ARF, Chemo, Hep., AIDS, mental health diagnosis, sleep apnea, morbid obesity)? @ -None Was patient admitted / discharged? Hospital course, mention meds given and route, prescriptions, significant lab abnormalities, going to OR and other pertinent info. @ -Discharge 38-year-old female presenting to the ED with complaints of right buttock/upper thigh pain after failing to break while using a riding mower and falling with the riding mower. Did not fall off of the riding mower. No head injury at this time. Now notes pain of her right upper leg. At this time x-ray is pending however patient would like to leave. Patient discharged home in stable condition advised close follow-up with her PCP. Will contact patient if official read comes back with pertinent findings. Discussed return precautions with patient who verbalized agreement. Undiagnosed new problem with uncertain prognosis? @ -No Drug Therapy requiring intensive monitoring for toxicity (Heparin, Nitro, Insulin, Cardizem)? @ -No Were any procedures done? @ -No Diagnosis/symptom? @ -Right buttock/thigh pain Acute, or Chronic, or Acute on Chronic? @ -Acute Uncomplicated (without systemic symptoms) or Complicated (systemic symptoms)? @ -Uncomplicated Side effects of treatment? @ -No Exacerbation, Progression, or Severe Exacerbation? @ -No Poses a threat to life or bodily function? How? (Chest pain, [place], [place], pneumonia, PE, COPD, DKA, ARF, appy, cholecystitis, CVA, Diverticulitis, Homicidal, Suicidal, threat to staff... and all critical care pts) @ -No (Etienne Samuels) Disposition <Dalia Rollins - Last Filed: 02/28/24 19:02> Is patient prescribed a controlled substance at d/c from ED?: No Time of Disposition: 01:15 <Etienne Samuels - Last Filed: 02/29/24 01:15> Clinical Impression: Right thigh pain Disposition: HOME SELF-CARE Condition: Good Instructions (If sedation given, give patient instructions): Muscle Strain (ED) Additional Instructions: Please return to the Emergency Department if symptoms worsen or any other concerns. Please follow-up with your PCP. Use [id number] medications as needed for pain. Referrals: Sergio Emanuel DO [Primary Care Provider] - 1-2 days
[2024-02-28 19:48] VITALS: RESP 18
[2024-02-29] MEDS: ACETAMINOPHEN TAB 500 MG TAB PO STA (00:02)
[2024-02-29] MEDS: lamoTRIgine 100 MG TAB PO STA (00:05)
[2024-02-29 01:53] VITALS: BP 146/84; PULSE 86; TEMP 97.8
--- NOTE | 2024-02-29 02:20 | XR ---
EXAMINATION TYPE: XR Hip RT and AP Pelvis DATE OF EXAM: 02/28/2024 8:47 PM CLINICAL INDICATION:Female, 38 years old with history of injury; [facility] COMPARISON: None. TECHNIQUE: The right hip was examined in the frontal and lateral projections and a AP pelvis. FINDINGS: No evidence for acute process, joint dislocation or significant soft tissue swelling. Bilateral surgical clips within the pelvis likely from tubal ligation. IMPRESSION: No acute process.
== END 2024-02-29 01:25 | disposition home or self-care (01) ==
LOC: EC 18:53
DX: M79.651 Pain in right thigh (principal); Z88.0 Allergy status to penicillin
CPT/HCPCS: 73502; 99283

== ENCOUNTER → 2024-04-21 | Outpatient (CLI) | payer BC ==
--- NOTE | 2024-04-25 17:36 | MM ---
Reason for Exam: Screening (asymptomatic). Baseline mammogram. Patient History: Menarche at age 7. First Full-Term at age 28. Late child-bearing (after 28). Maternal grandmother had breast cancer at or over age 50. Last menstrual period: 04/09/2024 Risk Values: Radha 5 year model risk: 0.8%. NCI Lifetime model risk: 14.8%. Prior Study Comparison: Patient's first Mammogram. Tissue Density: There are scattered areas of fibroglandular density. Findings: Analyzed By CAD. Nodularity in the bilateral lower aspects of the breasts favored to represent benign intramammary lymph nodes based on their lobulated/reniform appearance and location. Six-month follow-up recommended. Otherwise, no significant mass, suspicious microcalcification, or other discrete abnormality is seen. Overall Assessment: Probably benign, BI-RAD 3 Management: Diagnostic Mammogram of both breasts in 6 months. Results were given to the patient verbally at the time of exam. Patient should continue monthly self-breast exams. A clinical breast exam by your physician is recommended on an annual basis. This exam should not preclude additional follow-up of suspicious palpable abnormalities. Note on Radha scores and lifetime risk: 1. A Radha score greater than 3% is considered moderate risk. If this is the case, consider specialist referral to assess eligibility for a risk reducing agent. 2. If overall lifetime risk for the development of breast cancer is 20% or higher, the patient may qualify for future screening with alternating mammogram and breast MRI. Electronically signed and approved by: John Cardenas M.D. Radiologist
== END | disposition home or self-care (01) ==
LOC: RADMAMWWP 14:19
PROVIDERS: ATTEND Obstetrics & Gynecology
DX: Z12.31 Encounter for screening mammogram for malignant neoplasm of breast (principal); Z80.3 Family history of malignant neoplasm of breast
CPT/HCPCS: 77063; 77067

== ENCOUNTER → 2024-08-21 | Outpatient (CLI) | payer BC ==
--- NOTE | 2024-08-21 17:11 | CA ---
Transthoracic Echo Report Name: Susie Scott Age: 38 Gender: F : 1985 Exam Date: 08/21/2024 13:38 Exam Location: [facility] Ht (in): 66 Wt (lb): 230 Ordering Physician: Sergio Emanuel DO Attending/Referring Phys: Frame Cleaner Lucero Tran RDCS Procedure CPT: Indications: I49.9 CARDIAC ARRHYTHMIA Cardiac Hx: Technical Quality: Good Contrast 1: Total Dose (mL): Contrast 2: Total Dose (mL): MEASUREMENTS (Male / Female) Normal Values 2D ECHO LV Diastolic Diameter PLAX 4.3 cm 4.2 - 5.9 / 3.9 - 5.3 cm LV Systolic Diameter PLAX 2.5 cm IVS Diastolic Thickness 1.0 cm 0.6 - 1.0 / 0.6 - 0.9 cm LVPW Diastolic Thickness 1.0 cm 0.6 - 1.0 / 0.6 - 0.9 cm LV Relative Wall Thickness 0.5 RV Internal Dim ED PLAX 2.0 cm LA Systolic Diameter LX 3.2 cm 3.0 - 4.0 / 2.7 - 3.8 cm LV Diastolic Volume MOD BP 61.7 cm??? 67 - 155 / 56 - 104 cm??? LV Systolic Volume MOD BP 21.7 cm??? 22 - 58 / 19 - 49 cm??? LV Ejection Fraction MOD BP 64.8 % >= 55 % LV Cardiac Index MOD BP 1439.8 cm???/min???m??? LV Diastolic Volume MOD 4C 76.6 cm??? LV Systolic Volume MOD 4C 35.7 cm??? LV Ejection Fraction MOD 4C 53.4 % LV Cardiac Index MOD 4C 1471.2 cm???/min???m??? LV Diastolic Length 4C 7.2 cm LV Systolic Length 4C 6.1 cm LV Diastolic Volume MOD 2C 48.2 cm??? LV Systolic Volume MOD 2C 13.0 cm??? LV Ejection Fraction MOD 2C 73.1 % LV Cardiac Index MOD 2C 1267.1 cm???/min???m??? LV Diastolic Length 2C 6.9 cm LV Systolic Length 2C 6.0 cm LA Volume 38.5 cm??? 18 - 58 / 22 - 52 cm??? LA Volume Index 17.1 cm???/m??? 16 - 28 cm???/m??? M-MODE Aortic Root Diameter MM 2.4 cm LA Systolic Diameter MM 3.6 cm LA Ao Ratio MM 1.5 AV Cusp Separation MM 1.7 cm DOPPLER MV Area PHT 3.2 cm??? Mitral E Point Velocity 85.3 cm/s Mitral A Point Velocity 71.3 cm/s Mitral E to A Ratio 1.2 MV Deceleration Time 238.6 ms TR Peak Velocity 158.9 cm/s TR Peak Gradient 10.1 mmHg Right Ventricular Systolic Press 14.7 mmHg FINDINGS Left Ventricle Left ventricular ejection fraction is estimated at 55-60%. Mildly increased posterior wall thickness. Normal left ventricular systolic function with no obvious regional wall motion abnormalities. Left ventricular cavity size normal. Left ventricular wall thickness normal. Right Ventricle Normal right ventricular size and function. Right ventricular systolic pressure within normal limits. Right Atrium Normal right atrial size. Left Atrium Normal left atrial size. Mitral Valve Structurally normal mitral valve. Trace mitral regurgitation. No mitral stenosis. Aortic Valve Trileaflet aortic valve. No aortic valve stenosis or regurgitation. Tricuspid Valve Structurally normal tricuspid valve. Trace tricuspid regurgitation. No tricuspid stenosis. Pulmonic Valve Structurally normal pulmonic valve. No pulmonic stenosis. Trace pulmonic regurgitation. Pericardium No pericardial or pleural effusion. Aorta Normal size aortic root and proximal ascending aorta. CONCLUSIONS Normal LV function Previewed by: Dr. Moncho Mccoy MD (Electronically Signed) Final Date: 21 August 2024 17:10
== END | disposition home or self-care (01) ==
LOC: RADECHMAIN 13:28
PROVIDERS: ATTEND Internal Medicine Critical Care Medicine
DX: I49.9 Cardiac arrhythmia, unspecified (principal)
CPT/HCPCS: 93306

== ENCOUNTER → 2024-08-26 | Outpatient (CLI) | payer BC ==
--- NOTE | 2024-09-10 09:44 | P.HOLTER ---
24 HOUR HOLTER MONITOR : INDICATION: Cardiac arrhythmia I49.9 START DATE: 08/26/2024 END DATE: 08/28/2024 Patient was monitored for 2 days 6 hours. FINDINGS: Max HR: 156 BPM Min HR: 62 BPM Average HR: 90 BPM Supra-Ventricular ectopic burden: Less than 1% % Ventricular ectopic burden: Less than 1% % There were no signficant atrial fibrillation, atrial flutter, or sustained ventricular tachycardia episodes. There were no high-grade AV blocks There were no significant pauses greater than 2 seconds. CONCLUSION: Overall nonrevealing 48-hour Holter monitor Please correlate clinically. Darinel Castillo MD, FACC, RPVI Thank you for allowing [facility] to participate in this patient's care. Feel free to reach out in case of any followup questions.
--- NOTE | 2024-09-10 11:49 | HM ---
24 HOUR HOLTER MONITOR : INDICATION: Cardiac arrhythmia I49.9 START DATE: 08/26/2024 END DATE: 08/28/2024 Patient was monitored for 2 days 6 hours. FINDINGS: Max HR: 156 BPM Min HR: 62 BPM Average HR: 90 BPM Supra-Ventricular ectopic burden: Less than 1% % Ventricular ectopic burden: Less than 1% % There were no significant atrial fibrillation, atrial flutter, or sustained ventricular tachycardia episodes. There were no high-grade AV blocks There were no significant pauses greater than 2 seconds. CONCLUSION: Overall nonrevealing 48-hour Holter monitor. Please correlate clinically. MTDD
== END | disposition home or self-care (01) ==
LOC: RADECHMAIN 08:09
PROVIDERS: ATTEND Internal Medicine Critical Care Medicine
DX: I49.9 Cardiac arrhythmia, unspecified (principal)
CPT/HCPCS: 93225